=== PATIENT | male | born 1940 | race Caucasian/White ===

== ENCOUNTER → 2016-09-06 | Outpatient (CLI) | payer BC ==
--- NOTE | 2016-09-06 10:19 | DIAGNOSTIC IMAGING REPORT ---
ULTRASOUND RIGHT UPPER QUADRANT ABDOMEN CLINICAL HISTORY: Elevated hepatic transaminases. COMPARISON STUDY: Abdominal ultrasound dated 04/03/2007. TECHNIQUE: Real-time, grayscale, and color flow sonography of the right upper quadrant of the abdomen was performed. Images are reviewed in the transverse and longitudinal planes. FINDINGS: Liver: The liver is top normal in size and demonstrates heterogeneously increased echotexture consistent with hepatic steatosis. There is no intrahepatic biliary ductal dilatation. The main portal vein is patent. Gallbladder: The gallbladder is normal in appearance. No gallstones are identified. There is no gallbladder wall thickening or pericholecystic fluid. A sonographic Alcaraz's sign is reportedly absent. The common bile duct measures up to 0.4 cm in diameter. Pancreas: Visualized portions of the pancreatic head and body are normal in appearance. The splenic vein is patent. Right kidney: Survey images of the right kidney demonstrate normal size and echotexture. There is no hydronephrosis. Ascites: None. IMPRESSION: 1. No acute sonographic abnormality is identified. No gallstones are seen. 2. Hepatic steatosis. Electronically signed by: Colin Wise M.D. 09/06/2016 10:18 AM Dictated Date/Time: 09/06/2016 10:14 AM
== END | disposition home or self-care (01) ==
LOC: C.ULTR 09:46
PROVIDERS: ATTEND Family Medicine
DX: R79.89 Other specified abnormal findings of blood chemistry (principal); K76.0 Fatty (change of) liver, not elsewhere classified

== ENCOUNTER → 2016-09-23 | Outpatient (CLI) | payer BC ==
--- NOTE | 2016-09-23 12:05 | DIAGNOSTIC IMAGING REPORT ---
RIGHT HIP UNILATERAL MIN 2 VIEWS CLINICAL HISTORY: Right hip pain. No recent injury. COMPARISON: Right hip radiographs December 21, 2011. FINDINGS: Irregularity of the lesser trochanter is due to muscular insertion. Alignment of the right hip is anatomic. Joint space is preserved. There is mild osteophytosis of the right hip. There is no fracture or suspicious lesion there is no radiographic evidence of avascular necrosis of the femoral head. IMPRESSION: 1. No acute fracture. 2. 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 Electronically signed by: Rei Horner M.D. 09/23/2016 12:03 PM Dictated Date/Time: 09/23/2016 12:02 PM
== END | disposition home or self-care (01) ==
LOC: C.RDSM 08:00
PROVIDERS: ATTEND Internal Medicine
DX: M25.551 Pain in right hip (principal)